=== PATIENT | male | born 1980 | race Two or more races ===

== ENCOUNTER 2016-12-31 16:50 | Emergency (ER) | payer OTHER ==
[~2016-12-31] VITALS: Ht 180.3 cm; Wt 86.2 kg
[~2016-12-31 16:50] MED LIST: ALEVE220 MG PO
[2017-07-19] MEDS ORDERED: SYNTHROID125 MCG PO (16:46)
== END 2016-12-31 17:35 | disposition short-term general hospital (02) ==
LOC: ER 16:50
DX: K02.9 Dental caries, unspecified (principal); K12.2 Cellulitis and abscess of mouth

== ENCOUNTER 2017-04-11 22:53 | Emergency (ER) | payer OTHER ==
[~2017-04-11] VITALS: Ht 180.3 cm; Wt 83.9 kg
[2017-07-19] MEDS ORDERED: SYNTHROID125 MCG PO (16:46)
== END 2017-04-11 23:41 | disposition short-term general hospital (02) ==
LOC: ER 22:53
DX: K04.7 Periapical abscess without sinus (principal); Z90.49 Acquired absence of other specified parts of digestive tract; Z79.899 Other long term (current) drug therapy; Z88.1 Allergy status to other antibiotic agents